=== PATIENT | female | born 1970 | race Caucasian/White ===

== ENCOUNTER 2016-09-19 09:19 | Emergency (ER) | payer OTHER ==
[2016-09-19 09:22] VITALS: TEMP 98.1
--- NOTE | 2016-09-19 09:51 | EDPHY ---
H & P Smoking Status: Never smoked Time Seen by Provider: 09/19/16 09:34 HPI/ROS: CHIEF COMPLAINT: Abdominal pain, bloody diarrhea, nausea HISTORY OF PRESENT ILLNESS: 46-year-old female presents to the emergency department with abdominal pain, bloody diarrhea and nausea. The patient has a history of vasculitis and is treated with chemotherapy typically about every 6 months. Her last infusion was 3 months ago. She has had flare-ups of her vasculitis in the past. She is on now 5 mg of prednisone daily. No fevers or chills. No chest pain or difficulty breathing. No back pain. She did initially start with a pruritic rash which is common for her when she gets a flare-up of this however this has since resolved. REVIEW OF SYSTEMS: Constitutional: No fever, no chills. Eyes: No double or blurry vision. ENT: No sore throat. Respiratory: No cough, no shortness of breath. Cardiac: No chest pain. Gastrointestinal: Abdominal pain, bloody diarrhea as above. Nausea. No vomiting Genitourinary: No dysuria. Musculoskeletal: No neck or back pain. Skin: No rashes. Neurological: No headache. 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 Vital signs are stable. No apparent distress. Eyes: Pupils equal and round. Extraocular motions are all intact. ENT: Mouth: Mucous membranes moist. Respiratory: No wheezing, rhonchi, or rales, lungs are clear to auscultation. Cardiovascular: Regular rate and rhythm. Gastrointestinal: Abdomen is soft. Tenderness with palpation in the left lower quadrant. There is no rebound, guarding or masses noted. No CVA tenderness bilaterally. Neurological: Alert and oriented x 3, cranial nerves II through XII grossly intact Skin: Warm and dry, no rashes. Musculoskeletal: Nontender to palpate along the cervical, thoracic or lumbar spine. Neck is supple. Extremities: Full range of motion and no peripheral edema. Psychiatric: Patient is oriented X 3, there is no agitation. (Mile Camacho) Constitutional: Initial Vital Signs Temperature (C) 36.7 C 09/19/16 09:20 Heart Rate 75 09/19/16 09:20 Respiratory Rate 18 09/19/16 09:20 Blood Pressure 128/67 H 09/19/16 09:20 O2 Sat (%) 98 09/19/16 09:20 O2 Delivery Mode Room Air Allergies/Adverse Reactions: banana Allergy (Verified 09/19/16 09:19) codeine [Codeine] Allergy (Verified 09/19/16 09:19) sesame oil [Sesame] Allergy (Verified 09/19/16 09:19) strawberry Allergy (Verified 09/19/16 09:19) tomato Allergy (Uncoded 03/05/16 08:30) Home Medications: Medication Instructions Recorded Albuterol [Ventolin Hfa Inhaler] 1 - 2 puffs IH Q4H PRN 09/03/15 Multivitamins [Multivitamin (*)] 1 each PO DAILY 09/03/15 Pantoprazole Sodium [Protonix 40mg 40 mg PO DAILY 09/03/15 (*)] Prednisolone Acetate 1 - 2 drops RTEYE QID 09/03/15 Acetaminophen [Tylenol 325mg (*)] 650 mg PO Q6 PRN #0 tab 09/04/15 Hydrocodone/APAP 5/325 [[place] 1 - 2 tab PO Q6 PRN #20 tab 09/04/15 5/325 (*)] predniSONE 20 mg PO DAILY #0 tablet 09/04/15 Hydrocodone/APAP 5/325 [[place] 1 - 2 each PO Q6 PRN #20 tab 10/07/15 5/325] Rituxan 10/07/15 GABAPENTIN 03/05/16 Guaifenesin/Hydrocodone Bit 10 ml PO HS PRN #120 ml 03/05/16 [HYDROCODONE-GUAIFENESIN SYRUP] LYRICA 03/05/16 predniSONE 40 mg PO DAILY #8 tab 03/05/16 Hydrocodone/APAP 5/325 [[place] 1 - 2 tab PO Q4 #13 tab 03/18/16 5/325 (RX)] Valacyclovir HCl [Valtrex] 1,000 mg PO TID #21 tab 03/18/16 predniSONE 40 mg PO DAILY 4 Days 03/18/16 Ondansetron Odt [Zofran Odt] 4 mg PO Q4PRN #8 tab 09/19/16 Medical Decision Making ED Course/Re-evaluation: 46-year-old female presents to the emergency department with bloody diarrhea and feeling nauseous. The patient has a history of vasculitis, EGPA, and feels that she is having a flare up. An IV was established and laboratory studies were drawn. The patient has a normal hemoglobin and hematocrit. Her chemistries are unremarkable. I spoke with Dr. Lennon, patient's GI doctor, who did not recommend any imaging studies. He felt that she should stay on her prednisone 5 mg if this needed to be increased, he recommended having her follow up with her fish salter, Dr. Deborah Rachel who has been managing this. We did attempt to call Dr. Rachel several times, however she has not returned the page. Patient is comfortable being discharged home. She was given Bentyl 20 mg p. o. in the emergency department. She has a prescription for this at home. She was also given a prescription for additional Zofran as she was given IV Zofran in the emergency department feeling much better. Patient feels comfortable being discharged home. (Mile Camacho) I did not see this patient while she was in the emergency department. However her care was discussed with the PA while the patient was in the department. I agree with treatment plan and management (Richardson Kim) Differential Diagnosis: Including but not limited to vasculitis flare up, colitis, perforation, acute appendicitis (Mile Camacho) - Data Points Laboratory Results: Laboratory Results 09/19/16 09:40 09/19/16 09:40 Medications Given: Discontinued Medications Dicyclomine HCl (Bentyl) 20 mg PO EDNOW ONE Stop: 09/19/16 13:20 Last Admin: 09/19/16 13:59 Dose: 20 mg Hydromorphone HCl (Dilaudid) 0.5 mg IVP EDNOW ONE Stop: 09/19/16 09:54 Last Admin: 09/19/16 10:13 Dose: 0.5 mg Sodium Chloride (Ns) 1,000 mls @ 0 mls/hr IV ONCE ONE PRN Reason: Wide Open Stop: 09/19/16 09:54 Last Admin: 09/19/16 10:13 Dose: 1,000 mls Ondansetron HCl (Zofran) 4 mg IVP EDNOW ONE Stop: 09/19/16 09:54 Last Admin: 09/19/16 10:14 Dose: 4 mg Departure - Departure Disposition: Home, Routine, Self-Care Clinical Impression: History of vasculitis, Abdominal pain, Bloody diarrhea Condition: Good Instructions: Acute Nausea and Vomiting (ED), Acute Diarrhea (ED), Acute Abdominal Pain (ED) Additional Instructions: Zofran as needed for nausea. Continue prednisone daily. We attempted to call Dr. Deborah Rachel, however she was not returning or page and their office was not answering the phone. You may call the office and tell them that you need to arrange for a follow-up appointment. Return to the emergency department if you develop fever, recurring abdominal pain, bloody diarrhea, or if you feel worse in any way. Referrals: Angie Bowen MD [Primary Care Provider] - As per Instructions Deborah Rachel MD [place] [place] - As per Instructions Shakeel Lennon MD [[facility] [place]] - As per Instructions Prescriptions: Ondansetron Odt [Zofran Odt] 4 mg PO Q4PRN #8 tab
[2016-09-19] MEDS ORDERED: NS 1,000 ML IV ONE (09:53)
[2016-09-19] MEDS ORDERED: HYDROmorphONE/DILAUDID 1 MG/ML SYR IVP ONE (09:53)
[2016-09-19] MEDS ORDERED: ONDANSETRON 4 MG/2 ML VIAL IVP ONE (09:53)
[2016-09-19 10:12] LABS: % IMMATURE GRANULYOCYTES 0.3 % (0.0-1.1); ABSOLUTE IMMATURE GRANULOCYTES 0.02 10^3/uL (0.00-0.10); ADD DIFF? NO; ADD MORPH? NO; ADD SCAN? NO; ATYPICAL LYMPHOCYTE FLAG 20 (0-99); FRAGMENT RBC FLAG 0 (0-99); HEMATOCRIT 44.2 % (38.0-47.0); HEMOGLOBIN 15.1 g/dL (12.6-16.3); LEFT SHIFT FLG 0 (0-99); LIPEMIA HEMOLYSIS FLAG 90 (0-99); MEAN CELL HEMOGLOBIN 30.3 pg (27.9-34.1); MEAN CELL HEMOGLOBIN CONCENTR. 34.2 g/dL (32.4-36.7); MEAN CELL VOLUME 88.8 fL (81.5-99.8); MEAN PLATELET VOLUME 9.3 fL (8.7-11.7); PLATELET CLUMPS FLAG 0 (0-99); PLATELET COUNT 275 10^3/uL (150-400); RED BLOOD CELL COUNT 4.98 10^6/uL (4.18-5.33); RED CELL DISTRIBUTION WIDTH 12.6 % (11.5-15.2)
[2016-09-19 10:26] LABS: ANION GAP 15 mEq/L (8-16); CALCIUM 9.9 mg/dL (8.5-10.4); CARBON DIOXIDE 20 mEq/l (22-31); CHLORIDE 103 mEq/L (97-110); GLOMERULAR FILTRATION RATE 60; GLUCOSE 86 mg/dL (70-100); POTASSIUM 4.1 mEq/L (3.5-5.2); SODIUM 138 mEq/L (134-144)
[2016-09-19] MEDS ORDERED: DICYCLOMINE 10 MG CAP PO ONE (13:19)
[2016-09-19 14:16] VITALS: BP 113/81; PULSE 74; RESP 16; O2SAT 94
== END 2016-09-19 14:16 | disposition home or self-care (01) ==
DX: R19.7 Diarrhea, unspecified (principal); R10.32 Left lower quadrant pain; Z86.79 Personal history of other diseases of the circulatory system; Z90.710 Acquired absence of both cervix and uterus
CPT/HCPCS: 96374; J1170; J2405

== ENCOUNTER → 2017-07-09 | Outpatient (CLI) | payer OTHER | LOC: CIMAGING 08:12 | DX: J34.89 Other specified disorders of nose and nasal sinuses (principal); H91.90 Unspecified hearing loss, unspecified ear | CPT/HCPCS: 70486-PO ==

== ENCOUNTER 2017-12-31 12:24 | Inpatient (IN) | payer OTHER ==
[2017-12-31] MEDS ORDERED: ONDANSETRON DISINTEGRATING 4 MG TAB PO ONE (12:33)
[2017-12-31] MEDS ORDERED: ONDANSETRON DISINTEGRATING 4 MG TAB ONE ×2 (12:36)
--- NOTE | 2017-12-31 13:12 | EDPHY ---
H & P Time Seen by Provider: 12/31/17 13:11 HPI/ROS: CHIEF COMPLAINT: Abdominal pain and diarrhea HISTORY OF PRESENT ILLNESS: The patient has a history of vasculitis and previous flare ups. She was changed from Rituxan to Nucala 6 months ago. She is currently on 10 mg a day of oral prednisone. She has had 2 weeks of worsening diarrhea and left lower quadrant abdominal pain, much worse today. She had 5 episodes of diarrhea today, feels bloated, associated with some mucus and nausea. She was changed from Bentyl to hysocyamine but that has not helped. Symptoms moderate to severe. Pain does not radiate. Not associated with urinary symptoms or recent injury or fever or trauma. REVIEW OF SYSTEMS: Eye: no change in vision ENT: no sore throat Cardiac: no chest pain or syncope Pulmonary: no cough or SOB Abdomen: HPI Musculoskeletal: no back pain Skin: Recent bilateral forearm rash which has resolved Neuro: Intermittent headaches, has peripheral neuropathy which is worse. Constitutional: no fever : no urinary symptoms A comprehensive 10 point review of systems is otherwise negative aside from elements mentioned in the history of present illness. PAST MEDICAL HISTORY: Includes hysterectomy, Graves disease, rheumatoid arthritis, Churg-Jaciel vasculitis. Social history: Nonsmoker, sees Dr. Lennon and Dr. Rachel General Appearance: Alert and conversant, cooperative. Eyes: No scleral icterus. ENT, Mouth: Dry mucous membranes. Respiratory: Normal respiratory effort, breath sounds equal, lungs are clear to auscultation. Cardiovascular: Regular rate and rhythm. Gastrointestinal: Left lower quadrant tenderness without rebound or guarding. Neurological: Alert, face symmetric, normal motor and sensory in extremities. Skin: Warm and dry, no rashes. Musculoskeletal: No peripheral edema. Psychiatric: Not agitated. Emergency Department course/MDM: Saline IV hydration, fentanyl 100 mcg and Zofran [address] scanning abdomen and pelvis. Consultation with her stereo compiler. 1513: CT negative for Coral, still awaiting call back from [facility], results discussed with the patient, additional nausea and 4 mg IV Zofran reordered. 1515: Discussed with [facility], negative colonoscopy 1 year ago per [facility]. 1520: Discussed with Wilson, recommends checking GI pathogen panel. Increase steroids with IV solumedrol. 80 mg IV in the emergency department. Smoking Status: Never smoked Constitutional: Initial Vital Signs Temperature (C) 37.0 C 12/31/17 12:29 Heart Rate 81 12/31/17 12:29 Respiratory Rate 18 12/31/17 12:29 Blood Pressure 138/85 H 12/31/17 12:29 O2 Sat (%) 97 12/31/17 12:29 O2 Delivery Mode Room Air Allergies/Adverse Reactions: banana Allergy (Verified 09/19/16 09:19) codeine [Codeine] Allergy (Verified 09/19/16 09:19) sesame oil [Sesame] Allergy (Verified 09/19/16 09:19) strawberry Allergy (Verified 09/19/16 09:19) tomato Allergy (Uncoded 03/05/16 08:30) Home Medications: Medication Instructions Recorded Albuterol [Ventolin Hfa Inhaler] 1 - 2 puffs IH Q4H PRN 09/03/15 Multivitamins [Multivitamin (*)] 1 each PO DAILY 09/03/15 Acetaminophen [Tylenol 325mg (*)] 650 mg PO Q6 PRN #0 tab 09/04/15 predniSONE 20 mg PO DAILY #0 tablet 09/04/15 GABAPENTIN 03/05/16 LYRICA 03/05/16 predniSONE 40 mg PO DAILY #8 tab 03/05/16 predniSONE 40 mg PO DAILY 4 Days tab 03/18/16 Ondansetron Odt [Zofran Odt] 4 mg PO Q4PRN #8 tab 09/19/16 Nucala 12/31/17 Medical Decision Making - Diagnostics Imaging Results: Imaging Impressions Abdomen CT 12/31/17 14:09 Impression: There is no CT explanation for the patient's symptoms. Findings were discussed with COLLEEN CHAO MD at 15:10, on 12/31/2017. Imaging: Discussed imaging studies w/ bingo caller Radiologist Differential Diagnosis: Differential considered including but not limited to diverticulitis, intussusception, vasculitis, gastroenteritis. Consult/Admit Bed Type: [place] [id number] - Data Points Laboratory Results: Laboratory Results 12/31/17 13:20 12/31/17 13:20 12/31/17 12/31/17 13:20 13:20 WBC 8.46 10^3/uL 10^3/uL (3.80-9.50) RBC 4.82 10^6/uL 10^6/uL (4.18-5.33) Hgb 14.5 g/dL g/dL (12.6-16.3) Hct 42.8 % % (38.0-47.0) MCV 88.8 fL fL (81.5-99.8) MCH 30.1 pg pg (27.9-34.1) MCHC 33.9 g/dL g/dL (32.4-36.7) RDW 12.9 % % (11.5-15.2) Plt Count 346 10^3/uL 10^3/uL (150-400) MPV 9.2 fL fL (8.7-11.7) Neut % (Auto) 53.5 % % (39.3-74.2) Lymph % (Auto) 38.7 % % (15.0-45.0) [place] % (Auto) 6.5 % % (4.5-13.0) Eos % (Auto) 0.6 % % (0.6-7.6) Baso % (Auto) 0.5 % % (0.3-1.7) Nucleat RBC Rel Count 0.0 % % (0.0-0.2) Absolute Neuts (auto) 4.53 10^3/uL 10^3/uL (1.70-6.50) Absolute Lymphs (auto) 3.27 10^3/uL H 10^3/uL (1.00-3.00) Absolute Monos (auto) 0.55 10^3/uL 10^3/uL (0.30-0.80) Absolute Eos (auto) 0.05 10^3/uL 10^3/uL (0.03-0.40) Absolute Basos (auto) 0.04 10^3/uL 10^3/uL (0.02-0.10) Absolute Nucleated RBC 0.00 10^3/uL 10^3/uL (0-0.01) Immature Gran % 0.2 % % (0.0-1.1) Immature Gran # 0.02 10^3/uL 10^3/uL (0.00-0.10) Sodium 142 mEq/L mEq/L (135-145) Potassium 3.9 mEq/L mEq/L (3.3-5.0) Chloride 106 mEq/L mEq/L (97-110) Carbon Dioxide 25 mEq/l mEq/l (22-31) Anion Gap 11 mEq/L mEq/L (8-16) BUN 17 mg/dL mg/dL (7-23) Creatinine 0.8 mg/dL mg/dL (0.6-1.0) Estimated GFR > 60 Glucose 114 mg/dL H mg/dL (70-100) Calcium 9.9 mg/dL mg/dL (8.5-10.4) Medications Given: Discontinued Medications Fentanyl (Sublimaze) 100 mcg IVP EDNOW ONE Stop: 12/31/17 13:29 Last Admin: 12/31/17 13:45 Dose: 100 mcg Sodium Chloride (Ns) 1,000 mls @ 0 mls/hr IV EDNOW ONE; Wide Open PRN Reason: Protocol Stop: 12/31/17 13:29 Last Admin: 12/31/17 13:44 Dose: 1,000 mls Methylprednisolone Sodium Succinate (Solu-Medrol) 80 mg IVP EDNOW ONE Stop: 12/31/17 15:23 Last Admin: 12/31/17 15:30 Dose: 80 mg Ondansetron HCl (Zofran Odt) 4 mg PO EDNOW ONE Stop: 12/31/17 12:34 Last Admin: 12/31/17 12:37 Dose: 4 mg Ondansetron HCl (Zofran) 4 mg IVP EDNOW ONE Stop: 12/31/17 13:29 Last Admin: 12/31/17 13:45 Dose: 4 mg Ondansetron HCl (Zofran) 4 mg IVP EDNOW ONE Stop: 12/31/17 15:14 Last Admin: 12/31/17 15:30 Dose: 4 mg Departure - Departure Disposition: [facility] Inpatient Acute Clinical Impression: Abdominal pain Qualifiers: Abdominal location: left lower quadrant Qualified Code(s): R10.32 - Left lower quadrant pain Condition: Good
[2017-12-31] MEDS ORDERED: NS 1,000 ML IV ONE (13:28)
[2017-12-31] MEDS ORDERED: fentaNYL 100 MCG/2 ML INJ IVP ONE (13:28)
[2017-12-31] MEDS ORDERED: ONDANSETRON 4 MG/2 ML VIAL IVP ONE ×2 (13:28→15:13)
[2017-12-31 13:37] LABS: PLATELET COUNT 346 10^3/uL (150-400)
[2017-12-31] MEDS ORDERED: IOPAMIDOL (ISOVUE-300) 100 ML BTL ONE ×2 (14:12→14:18)
[2017-12-31] MEDS ORDERED: methylPREDNISolone SOD SUCC 125 MG/2 ML VIAL IVP ONE (15:22)
[2017-12-31] MEDS ORDERED: ACETAMINOPHEN 325 MG TAB PO PRN (17:05)
[2017-12-31] MEDS ORDERED: PROMETHAZINE HCL 25 MG/ML INJ IVP PRN (17:05)
[2017-12-31] MEDS ORDERED: oxyCODONE IR 5 MG TAB PO PRN (17:05)
--- NOTE | 2017-12-31 17:56 | GHP ---
DATE OF ADMISSION: 12/31/2017 CHIEF COMPLAINT: Diarrhea. HISTORY: The patient is a 47-year-old female with a history of Churg-Jaciel vasculitis. She previo usly followed at [facility], but has recently changed to [facility] and is followed there every 2-3 months. She is locally followed by Dr. Deborah Rachel. She is now on Nucala 30 mg oreilly bcu monthly as well as chronic prednisone. 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 She now presents to the hospital with excessive diarrhea and left lower quadrant pain. She has villatoro d 5 stools already today. Pain is in the left lower quadrant. Very tender to palpation, continuous. She has some nausea, but no vomiting. There has been no fever. There has been no blood in her sto ol. She has recently been falling, this is due to increased symptoms of neuropathy. She had a synco pal event and had an outpatient echocardiogram that was within normal limits. The emergency room spo ke with Dr. Rachel, who recommended admitting to the hospital for IV steroids. PAST MEDICAL HISTORY: 1. Churg-Jaciel vasculitis (EGPA vasculitis). 2. Asthma. 3. Graves disease. 4. Endometriosis, status post hysterectomy. 5. Negative colonoscopy 1 year ago. MEDICATIONS: Please see computer record for full detailed list. ALLERGIES: Codeine. SOCIAL HISTORY: No smoking. She will have a couple of beers per week. She lives with her . She has 2 children ages 13 and 15. She is on disability. REVIEW OF SYSTEMS: Complete review of systems obtained. Review of systems negative on constitutiona l, HEENT, GI, pulmonary, cardiovascular, , hematology, skin, musculoskeletal, endocrine, psych, exc ept for positives as in HPI. FAMILY HISTORY: Reviewed and noncontributory to presenting complaint. PHYSICAL EXAMINATION: GENERAL: Well-developed, well-nourished female, in no acute distress. VITAL SIGNS: Temperature 37, pulse 78, blood pressure 135/85, saturating 93% on room air. EYES: Normal c onjunctivae. Pupils equal and react to light. ENT: Normal ears, nose. Hearing intact. Normal jonah th. OROPHARYNX: Moist. NECK: Trachea midline. No thyromegaly. CHEST: Normal. Lungs clear to a uscultation bilaterally. CARDIOVASCULAR: Regular rhythm. No murmur. No lower extremity edema. AB DOMEN: Soft. Positive left lower quadrant tenderness to palpation without rebound or guarding. No hepatosplenomegaly. SKIN: Warm, dry, intact without rash. MUSCULOSKELETAL: Strength 5/5 upper and lower extremities. NEURO: Cranial nerves intact. Normal sensation to light touch. PSYCH: Alert and oriented x3. Normal affect. Normal judgment and insight. Normal memory. LABORATORY DATA: White count 8.46, hematocrit 42.8, platelets 346. Sodium 142, potassium 3.9, chlor sumaya 106, bicarb 25, BUN 17, creatinine 0.8, glucose 114. CT scan of the abdomen and pelvis is negati ve. This case was discussed with Dr. Bradly Gonzalez, who has reached out to both Dr. Lennon and Dr. Mikey soto for consultation. ASSESSMENT AND PLAN: 1. Diarrhea with left lower quadrant pain. This is a typical manifestation of her vasculitis flare. Will check a gastrointestinal PCR panel to rule out infection. IV steroids have already been start ed in the emergency room which will be continued via Solu-Medrol. Dr. Deborah Rachel is aware of this admission and has recommended these IV steroids. 2. Pain control. She has required IV fentanyl in the emergency room. Will attempt to wean off IV n arcotics as she improves. 3. 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 She has had increasing difficulties with ambulation. Will c onsult Physical Therapy. CODE STATUS: Full. ADMISSION STATUS: Will admit to observation. Reevaluate tomorrow regarding ongoing need for hospita lization. DVT PROPHYLAXIS: She is low risk. /[id number]/MODL
[2017-12-31] MEDS ORDERED: ALBUTEROL 3 ML DEYVIAL IH PRN (18:30)
[2017-12-31] MEDS: traMADol 50 MG TAB PO PRN (19:00)
[2017-12-31] MEDS: ONDANSETRON 4 MG/2 ML VIAL IVP PRN (19:05)
[2017-12-31] MEDS: NS 1,000 ML IV SCH (19:05)
[2017-12-31] MEDS ORDERED: ALBUTEROL 60 PUFFS/8 GM MDI IH SCH (21:00)
[2017-12-31] MEDS ORDERED: ALBUTEROL 60 PUFFS/8 GM MDI IH PRN (21:14)
[2017-12-31] MEDS: methylPREDNISolone SOD SUCC 40 MG/ML VIAL IVP SCH (21:56)
[2017-12-31] MEDS: GABAPENTIN 100 MG CAP PO SCH (21:56)
[2017-12-31] MEDS: NAPROXEN SODIUM 220 MG TAB PO SCH (21:56)
[2018-01-01] MEDS: HYDROmorphONE/DILAUDID 1 MG/ML INJ IVP PRN (01:39)
[2018-01-01] MEDS: methylPREDNISolone SOD SUCC 40 MG/ML VIAL IVP SCH ×3 (05:20→22:39)
[2018-01-01] MEDS: NS 1,000 ML IV SCH ×2 (05:21→15:13)
[2018-01-01] MEDS: NAPROXEN SODIUM 220 MG TAB PO SCH ×2 (08:27→20:07)
[2018-01-01] MEDS: ONDANSETRON 4 MG/2 ML VIAL IVP PRN ×2 (08:41→13:44)
[2018-01-01] MEDS: HYOSCYAMINE SULFATE 0.375 MG TAB.SR PO PRN ×2 (08:41→20:27)
[2018-01-01] MEDS ORDERED: POLYETHYLENE GLYCOL 3350 17 GM PKT PO PRN (13:19)
[2018-01-01] MEDS ORDERED: BISACODYL 10 MG SUPP PR PRN (13:19)
[2018-01-01] MEDS ORDERED: MAGNESIUM HYDROXIDE 30 ML UDCUP PO PRN (13:19)
[2018-01-01] MEDS ORDERED: LACTULOSE 20 GM/30 ML UDCUP PO PRN (13:19)
--- NOTE | 2018-01-01 15:45 | ASMTCMCOM ---
CM Note CM Note Notes: Chart reviewed. Patient admitted via ED for abdominal pain and loose stools. History significant for Churg Jaciel, asthma, graves disease. Live with her and has 2 children at home. CM to follow for needs. Plan: TBD Date Signed: 01/01/2018 03:35 PM Electronically Signed By:Zoë Holcomb RN
[2018-01-01] MEDS: traMADol 50 MG TAB PO PRN ×2 (16:21→22:39)
--- NOTE | 2018-01-01 16:25 | HOSPPROG ---
Hospitalist Progress Note Assessment/Plan: #Acute abdominal pain: AXR and CT without e/o obstruction. Suspect related to Churg-Jaciel -cont IV steroids, PRN opioids. GI PCR pending #Barry: [facility] and Dr. Citlalli Maria here in [place] #Syncopal episodes: per pt, normal echo. Last "black out" a month ago, preceded by tachycardia. Rec 30-day Holter monitor #Peripheral neuropathy: foot drop. PT/OT #Diet: as tolerated #Disp: inpatient admission for ongoing pain requiring IV steroids, opioids Subjective: nausea improved. Pain 09/08. Some distension Objective: Vital Signs Temp Pulse Resp BP Pulse Ox 36.5 C 84 17 130/81 H 95 01/01/18 15:07 01/01/18 15:07 01/01/18 15:07 01/01/18 15:07 01/01/18 15:07 12/31/17 01/01/18 01/02/18 05:59 05:59 05:59 Intake Total 2971 650 Output Total 2250 Balance 721 650 - Time Spent With Patient Time Spent with Patient: greater than 35 minutes Time Spent with Patient: Greater than 35 minutes spent on this patients care, greater than 50% of time spent counseling, educating, and coordinating care regarding the above mentioned plan. - Physical Exam Constitutional: no apparent distress Eyes: PERRL Ears, Nose, Mouth, Throat: moist mucous membranes Cardiovascular: regular rate and rhythym Respiratory: no respiratory distress Gastrointestinal: normoactive bowel sounds, distension, other (LLQ TPP, quiet BS ), No guarding, No rebound Genitourinary: no bladder fullness Skin: warm Musculoskeletal: full muscle strength Neurologic: AAOx3, CN II-XII Intact Psychiatric: interacting appropriately ICD10 Worksheet Patient Problems: Problems Problem Status Onset Abdominal pain Acute Left flank pain Acute Right sided weakness Acute
[2018-01-01] MEDS: SENNOSIDES/DOCUSATE SODIUM TAB PO SCH (20:06)
[2018-01-01] MEDS: GABAPENTIN 100 MG CAP PO SCH (20:07)
[2018-01-02] MEDS: methylPREDNISolone SOD SUCC 40 MG/ML VIAL IVP SCH ×2 (05:38→16:17)
[2018-01-02] MEDS: NAPROXEN SODIUM 220 MG TAB PO SCH (07:52)
[2018-01-02] MEDS: SENNOSIDES/DOCUSATE SODIUM TAB PO SCH (07:53)
[2018-01-02] MEDS: HYOSCYAMINE SULFATE 0.375 MG TAB.SR PO PRN (08:06)
[2018-01-02] MEDS: traMADol 50 MG TAB PO PRN (11:04)
--- NOTE | 2018-01-02 13:41 | ASMTLACE ---
ORALIAE Length of stay for Answers: 2 days current admission Acuity / Level of Answers: Yes Care: Did the patient have an inpatient admission? Comorbidities - select Answers: Opioid dependence all that apply / Chronic pain Other Notes: Graves disease; Churg-Jaciel vasculitis # of Emergency department Answers: 1-2 visits in the last 6 months Score: 11 Date Signed: 01/02/2018 01:41 PM Electronically Signed By:Radha Aguirre
[2018-01-02] MEDS: HYDROmorphONE/DILAUDID 1 MG/ML INJ IVP PRN (13:43)
[2018-01-02] MEDS: ONDANSETRON 4 MG/2 ML VIAL IVP PRN (13:51)
[2018-01-02] MEDS ORDERED: LORazepam 0.5 MG TAB PO PRN (15:26)
[2018-01-02] MEDS ORDERED: predniSONE 20 MG TAB PO SCH (15:30)
[2018-01-02 15:52] VITALS: BP 112/78
--- NOTE | 2018-01-02 16:29 | GDS ---
DISCHARGE DIAGNOSES: 1. Acute abdominal pain. 2. Churg-Jaciel flare. 3. Syncopal episodes. 4. History of tachycardia. 5. Peripheral neuropathy. 6. History of Graves disease. HISTORY OF PRESENT ILLNESS: A pleasant 47-year-old female with a history of Churg-Jaciel vasculitis, previously seen at [facility], but most recently at [facility] every 2-3 months. She is followed here locally by Dr. Rachel and Dr. Lennon. She is now on Nucala monthly and chronic prednisone. Her typical GI manifestations are abdominal pain, diarrhea. She presents with excessive diarrhea and left lower quadrant pain. Mild nausea but no vomiting. Afebrile. HOSPITAL COURSE BY PROBLEM: 1. Acute abdominal pain: flare from Churg-Jaciel vasculitis. GI PCR negative. Symptoms improved on IV steroids. CT negative for obstruction/abscess. Discharged on a prednisone taper. FU with Dr. Rachel and Dr. Lennon. 2. Syncopal episodes. multiple syncopal episodes in the last couple months, preceded by tachycardia. may be associated with recurrent Graves disease, as her TSH is low here. Cards arranged 30-day Holter monitor and FU. Free T3/T4 pending. FU with Dr. Sanchez. 3. Peripheral neuropathy. PT/OT. DISPOSITION: Patient stable for discharge home. NEW MEDICATIONS: Tramadol p.r.n., prednisone taper. PHYSICAL EXAMINATION: VITAL SIGNS: Today, temperature 37.2, blood pressure 135 /84, heart rate in the 70s, respirations 16, 95% on room air. GENERAL: She is well. Much brighter today. HEENT: PERRLA. Moist mucous membranes. CV: Regular rate and rhythm. LUNGS: Clear. ABDOMEN: Minimal left lower quadrant pain. Positive bowel sounds. : No Jo. MUSCULOSKELETAL: 5/5 upper and lower extremity strength. NEURO: 2 through 12 intact. PSYCH: Alert and oriented x3. TIME SPENT ON DISCHARGE: Greater than 45 minutes coordinating with Cardiology for Holter monitor and addressing followup plan with patient. /[id number]/MODL MTDD
--- NOTE | 2018-01-02 16:36 | ASMTCMCOM ---
CM Note CM Note Notes: Per pt's RN, discharge orders were placed and then pt began having sudden abdominal cramping and diarrhea similar to pre admission state. D/C orders then lifted. Pt feeling better after IV dilaudid, but not feeling ready to go home. Pt's prefers discharge today, so orders were placed in case pt is feeling better in a couple hours and feels capable of discharging to home. Discharge plan started. No therapies ordered. CM to follow. D/C plan: Independent with . Date Signed: 01/02/2018 04:35 PM Electronically Signed By:Radha Aguirre
--- NOTE | 2018-01-02 16:55 | PDMN ---
Medical Necessity Medical necessity: Change to inpt as of Pt meets inpt criteria per MD order and [facility] [place] M-05, Abdominal Pain. 47 y/o admitted w/acute abdominal pain, suspect r/t Churg-Jaciel, requiring ongoing IV steroids, PRN opioids for pain control, still w/distention, anticipate>2MN for further monitoring/treatment.
== END 2018-01-02 18:21 | disposition home or self-care (01) | DRG 392 ==
LOC: INTOOBSV 14:56 → F1N 16:29 → OBSVTOIN 01-02 10:26
PROVIDERS: ADMIT Internal Medicine; ATTEND Internal Medicine
DX: R10.32 Left lower quadrant pain (principal); M30.1 Polyarteritis with lung involvement [Churg-Strauss]; G62.9 Polyneuropathy, unspecified; R19.7 Diarrhea, unspecified; R55 Syncope and collapse; E86.9 Volume depletion, unspecified; J45.909 Unspecified asthma, uncomplicated; E05.00 Thyrotoxicosis with diffuse goiter without thyrotoxic crisis or storm; Z79.52 Long term (current) use of systemic steroids
CPT/HCPCS: 84481-90; 96374; 97116-GP; 97162-GP; 97166-GO; G0378; J1170; J1642; J2405; J2920; J2930; J3010; J7512; Q9967

== ENCOUNTER → 2018-06-10 | Outpatient (CLI) | payer OTHER ==
[~2018-06-10] MED LIST: IOPAMIDOL (ISOVUE-300) 100 ML BTL ONE
== END ==
LOC: FIMAGING 12:47
PROVIDERS: ATTEND Physician Assistant
DX: K57.90 Diverticulosis of intestine, part unspecified, without perforation or abscess without bleeding (principal)
CPT/HCPCS: J1642; Q9967

== ENCOUNTER → 2018-06-19 | Outpatient (CLI) | payer OTHER ==
[~2018-06-19] MED LIST changes: -IOPAMIDOL (ISOVUE-300) 100 ML BTL ONE; +IOPAMIDOL (ISOVUE-370) 150 ML BTL IV ONE
== END ==
LOC: EMCIMAGING 07:37
PROVIDERS: ATTEND Physician Assistant
DX: R10.31 Right lower quadrant pain (principal)
CPT/HCPCS: 74174-PN; 82565-PO; J1642; Q9967